=== PATIENT | female | born 2000 | race African-American/Black ===

== ENCOUNTER 2018-11-14 09:56 | Emergency (ER) | payer OTHER ==
[~2018-11-14] VITALS: Ht 170.2 cm; Wt 67.1 kg
[2018-11-14 09:57] VITALS: BP 126/85
[2018-11-14] MEDS ORDERED: LEVONORGESTREL1 EAC2 PO (10:09)
[2018-11-14] MEDS ORDERED: PREDNISONE 20 M20 MG PO (10:24)
[2018-11-14] MEDS ORDERED: TESSALON PERLE100 MG PO (10:24)
[2018-11-14] MEDS ORDERED: VENTOLIN HFA 1818 GM INH (10:24)
[2018-11-14] MEDS ORDERED: NEOMYC-POLYM-DEX5 ML OPHTHALMIC (10:24)
== END 2018-11-14 10:39 | disposition home or self-care (01) ==
LOC: ER 09:56
DX: R05 Cough (principal); R09.81 Nasal congestion; J45.909 Unspecified asthma, uncomplicated

== ENCOUNTER 2018-11-16 11:04 | Emergency (ER) | payer OTHER ==
[~2018-11-16] VITALS: Ht 172.7 cm; Wt 65.8 kg
[~2018-11-16 11:04] MED LIST: LEVONORGESTREL1 EAC2 PO; NEOMYC-POLYM-DEX5 ML OPHTHALMIC; PREDNISONE 20 M20 MG PO; TESSALON PERLE100 MG PO; VENTOLIN HFA 1818 GM INH
[2018-11-16 11:22] VITALS: BP 104/59
== END 2018-11-16 12:06 | disposition home or self-care (01) ==
LOC: ER 11:04
DX: J45.909 Unspecified asthma, uncomplicated (principal)

== ENCOUNTER 2021-05-25 16:39 | Emergency (ER) | payer OTHER ==
[~2021-05-25] VITALS: Ht 172.7 cm; Wt 70.3 kg
[2021-05-25 18:14] VITALS: BP 92/61
== END 2021-05-25 18:25 | disposition home or self-care (01) ==
LOC: ER 16:39
DX: U07.1 COVID-19 (principal); Z79.51 Long term (current) use of inhaled steroids; Z79.899 Other long term (current) drug therapy